=== PATIENT | female | born 1990 ===

== ENCOUNTER 2021-01-04 12:10 | Inpatient (IN) ==
[2021-01-04] MEDS ORDERED: Piperacillin/Tazobactam 3.375 GM in 0.9 % Sodium Chloride Mini Bag 100 ML IVPB ONE (13:43)
[2021-01-04 14:00] LABS: Basophils % 0.2 %; Lymphocytes % 3.1 %; Mean Platelet Volume 11.3 fL (9.4-12.4); Red Cell Distribution Width 11.6 % (11.5-14.5)
[2021-01-04 14:02] LABS: Basophils # 0.1 K/mcL (0.0-0.2); Eosinophils % 0.1 %; Hematocrit 38.3 % (35.3-44.9); Hemoglobin 13.5 g/dL (11.5-15.4); Immature Granulocytes % 1.9 % (0-4); Lymphocytes # 1.1 K/mcL (0.6-4.6); Mean Corpuscular HGB Conc 35.2 g/dL (31.6-35.5); Mean Corpuscular Volume 82.2 fL (83.0-100.0); Monocytes # 1.1 K/mcL (0.0-1.3); Monocytes % 3.3 %; Neutrophils # 30.9 K/mcL (1.6-8.9); Platelet Count 239 K/mcL (140-400); Red Blood Count 4.66 M/mcL (3.82-4.97); Segmented Neutrophils % 91.4 %
[2021-01-04 14:04] LABS: Platelet Estimate Normal (Normal); White Blood Count 33.8 K/mcL (4.3-11.1)
[2021-01-04 14:15] LABS: Bacteria,Urine Few per hpf (None-Few); Bilirubin,Urine Negative (Negative); Blood,Urine Trace (Negative); Clarity,Urine Clear (Clear); Color,Urine Light-Yellow (Yellow); Glucose,Urine (UA) Normal (Normal); Ketones,Urine 10 mg/dL (Negative); Leukocyte Esterase,Urine Small (Negative); Mucus,Urine Few per lpf (None-Few); Nitrite,Urine Negative (Negative); PH,Urine 6.5 pH Units (5.0-8.0); Protein,Urine 100 mg/dL (Neg-Trace); RBC,Urine 0-3 per hpf (0-3); Specific Gravity,Urine 1.026 (1.010-1.025); Squamous Epithelial Cell,Urine Few per hpf (None-Few); Urobilinogen,Urine Normal (Normal)
[2021-01-04] MEDS ORDERED: 0.9 % Sodium Chloride 1,000 ML IVC ONE ×2 (14:16→14:21)
[2021-01-04 14:18] LABS: BUN/Creatinine Ratio 14 (6-26); Blood Urea Nitrogen 13 mg/dL (6-20); Carbon Dioxide 25 mEq/L (23-29); Chloride 99 mEq/L (98-107); Potassium 3.3 mEq/L (3.5-5.1); Sodium 135 mEq/L (136-145); eGFR For African Americans > 60 (> 60)
[2021-01-04 14:19] LABS: Calcium 9.4 mg/dL (8.6-10.3); Glucose 107 mg/dL (70-105); Osmolality,Calculated 281 (280-300); eGFR For Non-African Americans > 60 (> 60)
[2021-01-04] MEDS ORDERED: Naloxone 0.4 MG/ML INJ IVP PRN (15:54)
[2021-01-04] MEDS ORDERED: Ondansetron 4 MG/2 ML VIAL IVP PRN (15:54)
[2021-01-04] MEDS ORDERED: 0.9 % Sodium Chloride 1,000 ML IVC SCH (16:00)
[2021-01-04 16:23] LABS: Creatine Kinase 150 Units/L (30-223)
[2021-01-04] MEDS ORDERED: *HR* OxyCODONE/APAP 5/325 TABLET PO PRN (16:31)
[2021-01-04] MEDS ORDERED: Ketorolac 15 MG/ML VIAL IVP PRN (16:32)
[2021-01-04] MEDS ORDERED: *HR* Heparin 5,000 UNIT/ML VIAL SQ SCH (18:00)
[2021-01-04] MEDS ORDERED: Acetaminophen 325 MG TABLET PO ONE (19:18)
[2021-01-04] MEDS ORDERED: hydrOXYzine pamoate 25 MG CAPSULE PO SCH (21:00)
[2021-01-04] MEDS ORDERED: traZODone 50 MG TABLET PO SCH (21:00)
[2021-01-04] MEDS ORDERED: Pregabalin 50 MG CAPSULE PO SCH (21:00)
[2021-01-04] MEDS ORDERED: Lidocaine -MPF 2% 2 ML VIAL ONE (22:32)
[2021-01-04] MEDS ORDERED: Lidocaine -MPF 4% 5 ML AMPUL ONE (22:32)
[2021-01-04] MEDS ORDERED: *HR* Succinylcholine 200 MG/10 ML VIAL IVP ONE (22:32)
[2021-01-04] MEDS ORDERED: *HR* FentaNYL (PF) 100 MCG/2 ML VIAL ONE (22:33)
[2021-01-04] MEDS ORDERED: *HR* Propofol 200 MG/20 ML VIAL IVP ONE ×2 (22:34→23:14)
[2021-01-04] MEDS ORDERED: Metoclopramide 10 MG/2 ML VIAL ONE (22:42)
[2021-01-04] MEDS ORDERED: Famotidine 20 MG/2 ML VIAL ONE (22:42)
[2021-01-04] MEDS ORDERED: Acetaminophen IV 1,000 MG/100 ML BAG IVPB ONE (22:42)
[2021-01-04] MEDS ORDERED: *HR* HYDROMORPHONE 2 MG/ML VIAL ONE (23:14)
[2021-01-04] MEDS ORDERED: Ondansetron 4 MG/2 ML VIAL ONE (23:14)
[2021-01-04] MEDS ORDERED: *HR* Magnesium Sulfate 1 GM/2 ML VIAL ONE (23:18)
[2021-01-04] MEDS ORDERED: Ketorolac 30 MG/ML VIAL ONE (23:29)
[2021-01-05] MEDS ORDERED: Piperacillin/Tazobactam 3.375 GM in 0.9 % Sodium Chloride Mini Bag 100 ML IVPB SCH
[2021-01-05] MEDS ORDERED: Promethazine 6.25 MG in Water for inj. (sterile) 20 ML IVPB PRN (00:01)
[2021-01-05] MEDS ORDERED: Pregabalin 75 MG CAPSULE PO ONE (00:02)
[2021-01-05] MEDS ORDERED: *HR* HYDROmorphone (PF) 1 MG/ML SYRINGE IVP PRN (00:02)
[2021-01-05] MEDS ORDERED: *HR* HYDROmorphone 2 MG TABLET PO PRN (00:02)
[2021-01-05] MEDS ORDERED: *HR* OxyCODONE Immed Rel 5 MG TABLET PO PRN (00:02)
[2021-01-05] MEDS ORDERED: Ondansetron 4 MG/2 ML VIAL IVP PRN (00:25)
[2021-01-05] MEDS ORDERED: Ketorolac 15 MG/ML VIAL IVP PRN (00:25)
[2021-01-05] MEDS ORDERED: 0.9 % Sodium Chloride 1,000 ML IVC SCH (00:25)
[2021-01-05] MEDS ORDERED: Naloxone 0.4 MG/ML INJ IVP PRN (00:25)
[2021-01-05] MEDS: traZODone 50 MG TABLET PO SCH ×2 (00:49→21:10)
[2021-01-05] MEDS: hydrOXYzine pamoate 25 MG CAPSULE PO SCH ×2 (00:49→21:09)
[2021-01-05] MEDS: Pregabalin 50 MG CAPSULE PO SCH ×3 (00:50→21:09)
[2021-01-05] MEDS: *HR* Heparin 5,000 UNIT/ML VIAL SQ SCH ×2 (05:54→17:31)
[2021-01-05 06:06] LABS: Basophils % 0.1 %; Monocytes % 1.6 %
[2021-01-05 06:08] LABS: Hematocrit 34.4 % (35.3-44.9); Lymphocytes # 0.4 K/mcL (0.6-4.6); Lymphocytes % 1.4 %; Mean Corpuscular HGB Conc 34.9 g/dL (31.6-35.5); Mean Corpuscular Hemoglobin 28.8 pg (28.0-33.3); Mean Corpuscular Volume 82.7 fL (83.0-100.0); Mean Platelet Volume 11.6 fL (9.4-12.4); Neutrophils # 25.7 K/mcL (1.6-8.9); Platelet Count 186 K/mcL (140-400); Red Blood Count 4.16 M/mcL (3.82-4.97); Red Cell Distribution Width 11.7 % (11.5-14.5); Segmented Neutrophils % 93.9 %; White Blood Count 27.4 K/mcL (4.3-11.1)
[2021-01-05 06:10] LABS: Monocytes # 0.4 K/mcL (0.0-1.3)
[2021-01-05 06:21] LABS: BUN/Creatinine Ratio 12 (6-26); Blood Urea Nitrogen 9 mg/dL (6-20); Calcium 8.4 mg/dL (8.6-10.3); Carbon Dioxide 22 mEq/L (23-29); Chloride 108 mEq/L (98-107); Glucose 136 mg/dL (70-105); Magnesium 2.1 mg/dL (1.6-2.6); Osmolality,Calculated 283 (280-300); Phosphorous 2.1 mg/dL (2.7-4.5); Potassium 3.9 mEq/L (3.5-5.1); Sodium 136 mEq/L (136-145); eGFR For African Americans > 60 (> 60); eGFR For Non-African Americans > 60 (> 60)
[2021-01-05] MEDS ORDERED: Loratadine 10 MG TABLET PO SCH (09:00)
[2021-01-05] MEDS ORDERED: Venlafaxine XR (24 HR) 75 MG CAP.ER.24H PO SCH (09:00)
[2021-01-05] MEDS: Piperacillin/Tazobactam 3.375 GM in 0.9 % Sodium Chloride Mini Bag 100 ML IVPB SCH ×2 (09:27→17:33)
[2021-01-05] MEDS: Loratadine 10 MG TABLET PO SCH (09:27)
[2021-01-05] MEDS: Venlafaxine XR (24 HR) 75 MG CAP.ER.24H PO SCH (09:27)
[2021-01-05] MEDS: 0.9 % Sodium Chloride 1,000 ML IVC SCH (09:28)
[2021-01-05] MEDS: Acetaminophen 325 MG TABLET PO PRN (18:55)
[2021-01-06] MEDS: Piperacillin/Tazobactam 3.375 GM in 0.9 % Sodium Chloride Mini Bag 100 ML IVPB SCH ×4 (00:17→23:14)
[2021-01-06] MEDS: Vancomycin 1,250 MG/262.5 ML IV.SOLN IVPB SCH ×2 (03:35→16:01)
[2021-01-06] MEDS: *HR* Heparin 5,000 UNIT/ML VIAL SQ SCH ×2 (05:10→16:02)
[2021-01-06] MEDS: 0.9 % Sodium Chloride 1,000 ML IVC SCH (07:23)
[2021-01-06] MEDS: Pregabalin 50 MG CAPSULE PO SCH ×2 (07:56→20:18)
[2021-01-06] MEDS: Loratadine 10 MG TABLET PO SCH (07:57)
[2021-01-06] MEDS: Venlafaxine XR (24 HR) 75 MG CAP.ER.24H PO SCH (07:57)
[2021-01-06 09:25] LABS: Basophils % 0.2 %; Eosinophils # 0.1 K/mcL (0.0-0.6); Eosinophils % 0.5 %; Hematocrit 30.6 % (35.3-44.9); Immature Granulocytes % 0.5 % (0-4); Lymphocytes # 1.6 K/mcL (0.6-4.6); Lymphocytes % 12.3 %; Mean Corpuscular Hemoglobin 28.3 pg (28.0-33.3); Mean Corpuscular Volume 83.2 fL (83.0-100.0); Mean Platelet Volume 11.4 fL (9.4-12.4); Monocytes # 0.4 K/mcL (0.0-1.3); Monocytes % 3.2 %; Neutrophils # 10.8 K/mcL (1.6-8.9); Platelet Count 233 K/mcL (140-400); Red Blood Count 3.68 M/mcL (3.82-4.97); Red Cell Distribution Width 12.1 % (11.5-14.5); Segmented Neutrophils % 83.3 %
[2021-01-06 09:28] LABS: Hemoglobin 10.4 g/dL (11.5-15.4)
[2021-01-06 09:41] LABS: BUN/Creatinine Ratio 13 (6-26); Blood Urea Nitrogen 9 mg/dL (6-20); Calcium 8.2 mg/dL (8.6-10.3); Carbon Dioxide 23 mEq/L (23-29); Chloride 114 mEq/L (98-107); Glucose 86 mg/dL (70-105); Magnesium 1.7 mg/dL (1.6-2.6); Osmolality,Calculated 292 (280-300); Phosphorous 2.4 mg/dL (2.7-4.5); Potassium 3.9 mEq/L (3.5-5.1); Sodium 142 mEq/L (136-145); eGFR For African Americans > 60 (> 60); eGFR For Non-African Americans > 60 (> 60)
[2021-01-06] MEDS: Acetaminophen 325 MG TABLET PO PRN (15:02)
[2021-01-06] MEDS: hydrOXYzine pamoate 25 MG CAPSULE PO SCH (20:18)
[2021-01-06] MEDS: *HR* OxyCODONE/APAP 5/325 TABLET PO PRN (20:18)
[2021-01-06] MEDS: traZODone 50 MG TABLET PO SCH (20:18)
[2021-01-07] MEDS: Vancomycin 1,250 MG/262.5 ML IV.SOLN IVPB SCH ×2 (02:07→03:26)
[2021-01-07] MEDS: 0.9 % Sodium Chloride 1,000 ML IVC SCH ×3 (02:09→09:18)
[2021-01-07 05:39] LABS: Basophils % 0.4 %; Eosinophils # 0.2 K/mcL (0.0-0.6); Eosinophils % 2.8 %; Hematocrit 29.6 % (35.3-44.9); Hemoglobin 9.9 g/dL (11.5-15.4); Immature Granulocytes % 0.3 % (0-4); Lymphocytes # 1.7 K/mcL (0.6-4.6); Lymphocytes % 24.2 %; Mean Corpuscular HGB Conc 33.4 g/dL (31.6-35.5); Mean Corpuscular Hemoglobin 28.1 pg (28.0-33.3); Mean Corpuscular Volume 84.1 fL (83.0-100.0); Mean Platelet Volume 11.1 fL (9.4-12.4); Monocytes # 0.3 K/mcL (0.0-1.3); Monocytes % 4.5 %; Neutrophils # 4.6 K/mcL (1.6-8.9); Platelet Count 251 K/mcL (140-400); Red Blood Count 3.52 M/mcL (3.82-4.97); Red Cell Distribution Width 12.2 % (11.5-14.5); Segmented Neutrophils % 67.8 %; White Blood Count 6.9 K/mcL (4.3-11.1)
[2021-01-07 06:01] LABS: BUN/Creatinine Ratio 9 (6-26); Blood Urea Nitrogen 9 mg/dL (6-20); Calcium 7.6 mg/dL (8.6-10.3); Carbon Dioxide 24 mEq/L (23-29); Chloride 111 mEq/L (98-107); Glucose 81 mg/dL (70-105); Magnesium 1.5 mg/dL (1.6-2.6); Osmolality,Calculated 290 (280-300); Phosphorous 3.7 mg/dL (2.7-4.5); Potassium 3.7 mEq/L (3.5-5.1); Sodium 141 mEq/L (136-145); eGFR For African Americans > 60 (> 60); eGFR For Non-African Americans > 60 (> 60)
[2021-01-07] MEDS: *HR* Heparin 5,000 UNIT/ML VIAL SQ SCH ×2 (06:18→17:52)
[2021-01-07] MEDS: Venlafaxine XR (24 HR) 75 MG CAP.ER.24H PO SCH (08:58)
[2021-01-07] MEDS: Pregabalin 50 MG CAPSULE PO SCH (08:59)
[2021-01-07] MEDS: Piperacillin/Tazobactam 3.375 GM in 0.9 % Sodium Chloride Mini Bag 100 ML IVPB SCH (08:59)
[2021-01-07] MEDS: Loratadine 10 MG TABLET PO SCH (08:59)
[2021-01-07] MEDS: *HR* OxyCODONE/APAP 5/325 TABLET PO PRN (09:04)
[2021-01-07] MEDS: Penicillin G Potassium 4,000,000 UNIT in 0.9 % Sodium Chloride 100 ML IVPB SCH ×2 (15:47→17:51)
[2021-01-07] MEDS ORDERED: Clindamycin 600 MG/50 ML 600 MG/50 ML IV.SOLN IVPB SCH (16:00)
[2021-01-07] MEDS ORDERED: Famotidine 20 MG/2 ML VIAL ONE (18:40)
[2021-01-07] MEDS ORDERED: Acetaminophen IV 1,000 MG/100 ML BAG IVPB ONE ×2 (18:40→20:24)
[2021-01-07] MEDS ORDERED: *HR* FentaNYL (PF) 100 MCG/2 ML VIAL ONE ×2 (19:05→19:43)
[2021-01-07] MEDS ORDERED: Lidocaine -MPF 2% 2 ML VIAL ONE (19:06)
[2021-01-07] MEDS ORDERED: *HR* Propofol 200 MG/20 ML VIAL IVP ONE (19:06)
[2021-01-07] MEDS ORDERED: Ondansetron 4 MG/2 ML VIAL ONE (19:06)
[2021-01-07] MEDS ORDERED: EPHEDrine 50 MG/ML VIAL ONE (19:56)
[2021-01-07] MEDS ORDERED: Pregabalin 75 MG CAPSULE PO ONE (20:24)
[2021-01-07] MEDS ORDERED: *HR* Labetalol 20 MG/4 ML SYRINGE IVP PRN (20:24)
[2021-01-07] MEDS ORDERED: Famotidine 20 MG/2 ML VIAL IVP ONE (20:24)
[2021-01-07] MEDS ORDERED: *HR* HYDROmorphone PF 0.5 MG/0.5 ML SYRINGE IVP PRN (20:24)
[2021-01-07] MEDS ORDERED: *HR* HYDROmorphone 2 MG TABLET PO PRN (20:24)
[2021-01-07] MEDS ORDERED: *HR* OxyCODONE Immed Rel 5 MG TABLET PO PRN (20:24)
[2021-01-07] MEDS ORDERED: Lactobacillus 1 EACH CAP.SPRINK PO SCH (21:00)
[2021-01-07] MEDS ORDERED: Naloxone 0.4 MG/ML INJ IVP PRN (21:05)
[2021-01-07] MEDS ORDERED: Acetaminophen 325 MG TABLET PO PRN (21:05)
[2021-01-07] MEDS ORDERED: Ondansetron 4 MG/2 ML VIAL IVP PRN (21:05)
[2021-01-07] MEDS ORDERED: Ketorolac 15 MG/ML VIAL IVP PRN (21:05)
[2021-01-07] MEDS: Clindamycin 600 MG/50 ML 600 MG/50 ML IV.SOLN IVPB SCH (22:35)
[2021-01-08] MEDS: *HR* OxyCODONE/APAP 5/325 TABLET PO PRN ×3 (00:23→18:31)
[2021-01-08] MEDS: Penicillin G Potassium 4,000,000 UNIT in 0.9 % Sodium Chloride 100 ML IVPB SCH ×6 (00:23→20:40)
[2021-01-08 04:29] LABS: Basophils % 0.3 %; Hematocrit 31.4 % (35.3-44.9); Hemoglobin 10.7 g/dL (11.5-15.4); Immature Granulocytes % 0.6 % (0-4); Lymphocytes # 0.7 K/mcL (0.6-4.6); Lymphocytes % 9.3 %; Mean Corpuscular HGB Conc 34.1 g/dL (31.6-35.5); Mean Corpuscular Hemoglobin 28.2 pg (28.0-33.3); Mean Corpuscular Volume 82.6 fL (83.0-100.0); Mean Platelet Volume 10.8 fL (9.4-12.4); Monocytes # 0.1 K/mcL (0.0-1.3); Monocytes % 1.8 %; Neutrophils # 6.3 K/mcL (1.6-8.9); Platelet Count 285 K/mcL (140-400); Red Cell Distribution Width 11.8 % (11.5-14.5); White Blood Count 7.1 K/mcL (4.3-11.1)
[2021-01-08 04:46] LABS: BUN/Creatinine Ratio 15 (6-26); Blood Urea Nitrogen 10 mg/dL (6-20); Calcium 8.1 mg/dL (8.6-10.3); Carbon Dioxide 25 mEq/L (23-29); Chloride 106 mEq/L (98-107); Glucose 169 mg/dL (70-105); Magnesium 1.5 mg/dL (1.6-2.6); Osmolality,Calculated 289 (280-300); Phosphorous 3.9 mg/dL (2.7-4.5); Potassium 4.2 mEq/L (3.5-5.1); Sodium 138 mEq/L (136-145); eGFR For African Americans > 60 (> 60); eGFR For Non-African Americans > 60 (> 60)
[2021-01-08] MEDS: *HR* Heparin 5,000 UNIT/ML VIAL SQ SCH ×2 (04:56→17:05)
[2021-01-08] MEDS: Clindamycin 600 MG/50 ML 600 MG/50 ML IV.SOLN IVPB SCH ×2 (07:41→16:16)
[2021-01-08] MEDS: Lactobacillus 1 EACH CAP.SPRINK PO SCH ×2 (07:43→20:41)
[2021-01-08] MEDS: Pregabalin 50 MG CAPSULE PO SCH ×2 (07:43→20:41)
[2021-01-08] MEDS: Loratadine 10 MG TABLET PO SCH (07:43)
[2021-01-08] MEDS: Venlafaxine XR (24 HR) 75 MG CAP.ER.24H PO SCH (07:43)
[2021-01-08] MEDS: hydrOXYzine pamoate 25 MG CAPSULE PO SCH (20:41)
[2021-01-08] MEDS: traZODone 50 MG TABLET PO SCH (20:41)
[2021-01-09] MEDS: Penicillin G Potassium 4,000,000 UNIT in 0.9 % Sodium Chloride 100 ML IVPB SCH ×7 (00:37→22:00)
[2021-01-09] MEDS: Clindamycin 600 MG/50 ML 600 MG/50 ML IV.SOLN IVPB SCH ×4 (00:38→23:09)
[2021-01-09] MEDS: *HR* Heparin 5,000 UNIT/ML VIAL SQ SCH ×2 (04:03→17:11)
[2021-01-09] MEDS: *HR* OxyCODONE/APAP 5/325 TABLET PO PRN ×3 (04:15→22:01)
[2021-01-09 04:23] LABS: Hematocrit 30.2 % (35.3-44.9); Hemoglobin 10.1 g/dL (11.5-15.4); Lymphocytes # 2.3 K/mcL (0.6-4.6); Mean Corpuscular HGB Conc 33.4 g/dL (31.6-35.5); Mean Corpuscular Hemoglobin 27.7 pg (28.0-33.3); Mean Corpuscular Volume 82.7 fL (83.0-100.0); Platelet Count 329 K/mcL (140-400); Red Blood Count 3.65 M/mcL (3.82-4.97); Red Cell Distribution Width 11.8 % (11.5-14.5); White Blood Count 6.3 K/mcL (4.3-11.1)
[2021-01-09 04:42] LABS: BUN/Creatinine Ratio 9 (6-26); Blood Urea Nitrogen 6 mg/dL (6-20); Calcium 7.7 mg/dL (8.6-10.3); Carbon Dioxide 28 mEq/L (23-29); Chloride 109 mEq/L (98-107); Glucose 95 mg/dL (70-105); Osmolality,Calculated 287 (280-300); Phosphorous 3.5 mg/dL (2.7-4.5); Potassium 3.7 mEq/L (3.5-5.1); Sodium 140 mEq/L (136-145); eGFR For African Americans > 60 (> 60); eGFR For Non-African Americans > 60 (> 60)
[2021-01-09 05:01] LABS: Platelet Estimate Normal (Normal); Reactive Lymphocytes Present (Not Present)
[2021-01-09 05:53] LABS: Neutrophils # 3.2 K/mcL (1.6-8.9); Segmented Neutrophils % 50.2 %
[2021-01-09 06:00] LABS: Basophils # 0.1 K/mcL (0.0-0.2); Eosinophils # 0.3 K/mcL (0.0-0.6); Immature Granulocytes % 0.8 % (0-4); Monocytes # 0.4 K/mcL (0.0-1.3)
[2021-01-09 06:01] LABS: Basophils % 0.8 %; Eosinophils % 4.2 %
[2021-01-09] MEDS: hydrOXYzine pamoate 25 MG CAPSULE PO SCH ×2 (07:52→22:01)
[2021-01-09] MEDS: Pregabalin 50 MG CAPSULE PO SCH ×3 (07:52→22:01)
[2021-01-09] MEDS: traZODone 50 MG TABLET PO SCH ×2 (07:52→22:00)
[2021-01-09] MEDS: Venlafaxine XR (24 HR) 75 MG CAP.ER.24H PO SCH (08:04)
[2021-01-09] MEDS: Lactobacillus 1 EACH CAP.SPRINK PO SCH ×2 (08:04→22:00)
[2021-01-09] MEDS: Loratadine 10 MG TABLET PO SCH (08:04)
[2021-01-10] MEDS: Penicillin G Potassium 4,000,000 UNIT in 0.9 % Sodium Chloride 100 ML IVPB SCH ×2 (00:15→04:27)
[2021-01-10 05:54] LABS: BUN/Creatinine Ratio 11 (6-26); Blood Urea Nitrogen 8 mg/dL (6-20); Calcium 8.4 mg/dL (8.6-10.3); Carbon Dioxide 30 mEq/L (23-29); Chloride 106 mEq/L (98-107); Glucose 83 mg/dL (70-105); Osmolality,Calculated 289 (280-300); Potassium 4.3 mEq/L (3.5-5.1); Sodium 141 mEq/L (136-145); eGFR For African Americans > 60 (> 60); eGFR For Non-African Americans > 60 (> 60)
[2021-01-10] MEDS: *HR* Heparin 5,000 UNIT/ML VIAL SQ SCH ×2 (06:26→18:28)
[2021-01-10] MEDS: Venlafaxine XR (24 HR) 75 MG CAP.ER.24H PO SCH (10:00)
[2021-01-10] MEDS: Pregabalin 50 MG CAPSULE PO SCH ×2 (10:01→20:56)
[2021-01-10] MEDS: Lactobacillus 1 EACH CAP.SPRINK PO SCH ×2 (10:01→20:55)
[2021-01-10] MEDS: Loratadine 10 MG TABLET PO SCH (10:01)
[2021-01-10] MEDS: Clindamycin 600 MG/50 ML 600 MG/50 ML IV.SOLN IVPB SCH (10:02)
[2021-01-10] MEDS: *HR* OxyCODONE/APAP 5/325 TABLET PO PRN ×2 (10:14→20:56)
[2021-01-10] MEDS: Vancomycin 1,250 MG/262.5 ML IV.SOLN IVPB SCH (13:38)
[2021-01-10] MEDS: traZODone 50 MG TABLET PO SCH (20:55)
[2021-01-10] MEDS: hydrOXYzine pamoate 25 MG CAPSULE PO SCH (20:56)
[2021-01-11] MEDS: Vancomycin 1,250 MG/262.5 ML IV.SOLN IVPB SCH ×2 (00:01→11:54)
[2021-01-11] MEDS: *HR* Heparin 5,000 UNIT/ML VIAL SQ SCH ×2 (06:15→16:35)
[2021-01-11 06:58] LABS: BUN/Creatinine Ratio 14 (6-26); Blood Urea Nitrogen 10 mg/dL (6-20); Calcium 8.7 mg/dL (8.6-10.3); Carbon Dioxide 29 mEq/L (23-29); Chloride 106 mEq/L (98-107); Glucose 87 mg/dL (70-105); Osmolality,Calculated 286 (280-300); Potassium 4.1 mEq/L (3.5-5.1); Sodium 139 mEq/L (136-145); eGFR For African Americans > 60 (> 60); eGFR For Non-African Americans > 60 (> 60)
[2021-01-11] MEDS: Pregabalin 50 MG CAPSULE PO SCH ×2 (07:45→20:50)
[2021-01-11] MEDS: Loratadine 10 MG TABLET PO SCH (07:45)
[2021-01-11] MEDS: Venlafaxine XR (24 HR) 75 MG CAP.ER.24H PO SCH (07:45)
[2021-01-11] MEDS: Lactobacillus 1 EACH CAP.SPRINK PO SCH ×2 (07:45→20:50)
[2021-01-11] MEDS: *HR* OxyCODONE/APAP 5/325 TABLET PO PRN ×2 (07:50→20:50)
[2021-01-11 10:20] LABS: Influenza A PCR Negative (Negative); Influenza B PCR Negative (Negative); Resp. Syncytial Virus PCR Negative (Negative); SARS-CoV-2 by PCR (In House) Negative (Negative)
[2021-01-11] MEDS: hydrOXYzine pamoate 25 MG CAPSULE PO SCH (20:50)
[2021-01-11] MEDS: traZODone 50 MG TABLET PO SCH (20:50)
[2021-01-12] MEDS: Vancomycin 1,250 MG/262.5 ML IV.SOLN IVPB SCH ×3 (00:08→23:08)
[2021-01-12] MEDS: *HR* Heparin 5,000 UNIT/ML VIAL SQ SCH ×2 (06:35→17:41)
[2021-01-12] MEDS: *HR* OxyCODONE/APAP 5/325 TABLET PO PRN ×2 (09:04→20:57)
[2021-01-12] MEDS: Loratadine 10 MG TABLET PO SCH (09:04)
[2021-01-12] MEDS: Venlafaxine XR (24 HR) 75 MG CAP.ER.24H PO SCH (09:04)
[2021-01-12] MEDS: Lactobacillus 1 EACH CAP.SPRINK PO SCH ×2 (09:04→20:58)
[2021-01-12] MEDS: Pregabalin 50 MG CAPSULE PO SCH ×2 (09:04→20:58)
[2021-01-12] MEDS ORDERED: Fluconazole 150 MG TABLET PO ONE (12:58)
[2021-01-12] MEDS: hydrOXYzine pamoate 25 MG CAPSULE PO SCH (20:58)
[2021-01-12] MEDS: traZODone 50 MG TABLET PO SCH (20:58)
[2021-01-13] MEDS: *HR* Heparin 5,000 UNIT/ML VIAL SQ SCH ×2 (04:43→15:22)
[2021-01-13] MEDS ORDERED: Lidocaine -MPF 1% 5 ML AMPUL INFILT ONE (07:33)
[2021-01-13] MEDS: Loratadine 10 MG TABLET PO SCH (09:01)
[2021-01-13] MEDS: Lactobacillus 1 EACH CAP.SPRINK PO SCH ×2 (09:01→20:35)
[2021-01-13] MEDS: Venlafaxine XR (24 HR) 75 MG CAP.ER.24H PO SCH (09:01)
[2021-01-13] MEDS: Pregabalin 50 MG CAPSULE PO SCH ×2 (09:01→20:35)
[2021-01-13] MEDS: *HR* OxyCODONE/APAP 5/325 TABLET PO PRN ×2 (09:01→15:29)
[2021-01-13 11:37] LABS: BUN/Creatinine Ratio 18 (6-26); Blood Urea Nitrogen 14 mg/dL (6-20); Calcium 9.4 mg/dL (8.6-10.3); Carbon Dioxide 24 mEq/L (23-29); Chloride 103 mEq/L (98-107); Glucose 84 mg/dL (70-105); Osmolality,Calculated 278 (280-300); Potassium 4.8 mEq/L (3.5-5.1); Sodium 134 mEq/L (136-145); eGFR For African Americans > 60 (> 60); eGFR For Non-African Americans > 60 (> 60)
[2021-01-13] MEDS: Vancomycin 1,250 MG/262.5 ML IV.SOLN IVPB SCH (12:14)
[2021-01-13] MEDS: Clindamycin 600 MG/50 ML 600 MG/50 ML IV.SOLN IVPB SCH ×2 (16:49→23:48)
[2021-01-13] MEDS: hydrOXYzine pamoate 25 MG CAPSULE PO SCH (20:35)
[2021-01-13] MEDS: traZODone 50 MG TABLET PO SCH (20:35)
[2021-01-14] MEDS: Vancomycin 1,250 MG/262.5 ML IV.SOLN IVPB SCH ×2 (00:34→12:39)
[2021-01-14 04:29] LABS: Basophils # 0.1 K/mcL (0.0-0.2); Eosinophils # 0.3 K/mcL (0.0-0.6); Eosinophils % 5.2 %; Hematocrit 36.1 % (35.3-44.9); Immature Granulocytes % 1.7 % (0-4); Lymphocytes # 2.2 K/mcL (0.6-4.6); Lymphocytes % 36.4 %; Mean Corpuscular HGB Conc 33.5 g/dL (31.6-35.5); Mean Corpuscular Hemoglobin 27.9 pg (28.0-33.3); Mean Corpuscular Volume 83.2 fL (83.0-100.0); Monocytes # 0.4 K/mcL (0.0-1.3); Monocytes % 7.2 %; Neutrophils # 2.9 K/mcL (1.6-8.9); Platelet Count 351 K/mcL (140-400); Red Blood Count 4.34 M/mcL (3.82-4.97); Red Cell Distribution Width 12.2 % (11.5-14.5); Segmented Neutrophils % 48.5 %
[2021-01-14 04:30] LABS: Hemoglobin 12.1 g/dL (11.5-15.4)
[2021-01-14 04:35] LABS: INR 1.2; Prothrombin Time 13.4 Seconds (9.4-12.1)
[2021-01-14] MEDS: *HR* Heparin 5,000 UNIT/ML VIAL SQ SCH ×2 (05:23→17:29)
[2021-01-14 07:25] VITALS: BP 123/81
[2021-01-14] MEDS: Lactobacillus 1 EACH CAP.SPRINK PO SCH (08:35)
[2021-01-14] MEDS: Venlafaxine XR (24 HR) 75 MG CAP.ER.24H PO SCH (08:35)
[2021-01-14] MEDS: Pregabalin 50 MG CAPSULE PO SCH (08:35)
[2021-01-14] MEDS: Loratadine 10 MG TABLET PO SCH (08:35)
[2021-01-14] MEDS: Clindamycin 600 MG/50 ML 600 MG/50 ML IV.SOLN IVPB SCH (08:36)
[2021-01-14 15:11] LABS: Influenza A PCR Negative (Negative); Influenza B PCR Negative (Negative); Resp. Syncytial Virus PCR Negative (Negative)
[2021-01-14 15:26] LABS: SARS-CoV-2 by PCR (In House) Negative (Negative)
== END 2021-01-14 18:40 | DRG 710 ==
LOC: 3NENU 12:10 → EMEROOARM 12:10 → 3NENU 16:58 → SUATTDRO 01-05 13:00
PROVIDERS: ADMIT Internal Medicine; ATTEND Internal Medicine